=== PATIENT | female | born 1950 | race African-American/Black ===

== ENCOUNTER → 2017-04-12 | Outpatient (CLI) | payer OTHER ==
--- NOTE | ~2017-04-12 | CT57 ---
[facility] A Service of [facility] & [facility] RADIOLOGY TEXT RESULTS PATIENT: ERIN LUNA LOCATION: [facility] : 46 UNIT #: [id number] AGE: [address]: Caleb Muhammad MD SEX: F ORDER DR: [id number] [address] [address] [id number] O MR#: [id number] Acc #: [id number] NAME: ERIN LUNA : 1950 SEX: F STUDY DATE/TIME: 04/12/2017 11:05 UNIT: [facility] ROOM: STUDY DESCRIPTION: CT Chest Wo Cont Attending Physician: Caleb Muhammad M.D. Referring Physician: Caleb Muhammad M.D. Ordering Physician: Caleb Muhammad M.D. Primary Care Physician: Caleb Muhammad M.D. MEDICAL IMAGING REPORT This report is preliminary unless electronic signature is present. EXAM CT of the chest without contrast INDICATIONS Followup pulmonary nodule. TECHNIQUE CT scan of the chest without contrast. Coronal and sagittal reformatted images were obtained. This CT exam was performed with one or more of the following radiation dose reduction techniques: automatic exposure control, adjustment of mA and/or kV according to patient size, and iterative reconstruction. COMPARISON STUDIES Comparison with 03/28/2017 and also 07/28/2015 and also 02/09/2016. FINDINGS There is a pulmonary nodule within the left lower lobe measuring roughly 1 cm in greatest dimension which is not significantly changed compared with the study in 2016 and measures slightly larger than the study in 2014. There is bilateral interstitial thickening which is nonspecific. It may represent interstitial edema or could be some mild fibrotic change. There is a stable micronodule in the right lung on image 67. No additional nodules. Stable right thyroid nodule. There is no suspicious lymphadenopathy. No pleural effusion. Limited imaging of the upper abdomen is showing cholecystectomy but otherwise unremarkable. IMPRESSION Persistent left lower lobe pulmonary nodule which is not significantly changed compared with 02/09/2016 but measures slightly larger than in 2014. On today's study I measure it as about 1 cm x 8 mm. I would suggest continued followup of this nodule. This could be performed again [facility] A Service of [facility] & [facility] RADIOLOGY TEXT RESULTS PATIENT: ERIN LUNA LOCATION: [facility] : 46 UNIT #: [id number] AGE: [address]: Caleb Muhammad MD SEX: F ORDER DR: in 6 months to ensure continued stability. Dictated by... Hernandez Rodarte M.D. THIS IS AN ELECTRONICALLY VERIFIED REPORT Hernandez Rodarte M.D. at 04/13/2017 7:24 PM Malvin TD: 04/12/2017 15:41 JOB #: [id number] MEDICAL IMAGING REPORT Page 1 of 1
--- NOTE | ~2017-04-12 | US128 ---
[id number] [address] [address] [id number] O MR#: [id number] Acc #: [id number] NAME: ERIN LUNA : 1950 SEX: F STUDY DATE/TIME: 04/12/2017 10:07 UNIT: [facility]CT ROOM: STUDY DESCRIPTION: Thyroid Attending Physician: Caleb Muhammad M.D. Referring Physician: Caleb Muhammad M.D. Ordering Physician: Caleb Muhammad M.D. Primary Care Physician: Caleb Muhammad M.D. MEDICAL IMAGING REPORT This report is preliminary unless electronic signature is present. EXAM Thyroid ultrasound DATE OF STUDY 04/12/2017 COMPARISON Prior ultrasound dated 02/09/2016 HISTORY Routine follow up for thyroid nodule. No symptoms. FINDINGS Stable solid nodule on the right lower lobe of the gland measuring 1.7 x 2.1 x 2.6 cm, unchanged since the prior ultrasound 02/09/2016. No additional nodules are seen. IMPRESSION Stable solid nodule right thyroid lower pole. No interval change since 02/09/2016. No new abnormality. Otherwise, negative study. Dictated by... Roc Bender M.D. THIS IS AN ELECTRONICALLY VERIFIED REPORT Roc Bender M.D. at 04/14/2017 5:31 PM TEV/to TD: 04/12/2017 18:26 JOB #: [id number] MEDICAL IMAGING REPORT Page 1 of 1
[2017-04-12 10:00] LABS: POC - CREATININE 2.21 mg/dL (0.44-1.03)
== END | disposition home or self-care (01) ==
LOC: SCT 09:34
PROVIDERS: Family Medicine
DX: R91.1 Solitary pulmonary nodule (principal); R63.0 Anorexia
CPT/HCPCS: 71250; 76536; 82565